=== PATIENT | female | born 1995 | race Caucasian/White ===

== ENCOUNTER → 2018-03-13 | Outpatient (CLI) | payer OTHER ==
[~2018-03-13] MED LIST: GADAVIST IV PRN
--- NOTE | 2018-03-13 11:30 | DIAGNOSTIC IMAGING REPORT ---
PELVIS MRI WITH AND WITHOUT INTRAVENOUS CONTRAST HISTORY: PELVIC PAIN,ABNORMAL PELVIC ULTRASOUND TECHNIQUE: Multiplanar multisequence MRI of the pelvis was performed both before and after the intravenous administration of contrast. COMPARISON STUDY: None. FINDINGS: The uterus measures 6.7 x 4.8 x 3.2 cm. The endometrium is normal in thickness measuring 4 mm. No uterine masses identified. The cervix is unremarkable. No significant pelvic free fluid. The left ovary is normal in size measuring 2.7 x 1.6 cm. This contains a few small follicles/cysts. Dominant cyst measures 15 mm. The right ovary measures 7.4 x 6.1 cm. This is a result of a large cyst measuring 6.9 x 6.1 cm. There are few additional tiny subcentimeter follicles/cysts within the right ovary. This large cyst is seen anterior to the uterus and abuts and displaces the bladder dome. No bladder wall thickening. No pelvic lymphadenopathy. Postcontrast sequences show no areas of abnormal enhancement. Specifically, there is no abnormal enhancement within the dominant right ovarian cyst. IMPRESSION: 1. A large right ovarian simple cyst measuring 6.9 x 6.1 cm. This is anterior to the uterus and abuts and displaces the bladder dome. No abnormal enhancement. 6-8 week pelvic ultrasound follow-up is recommended to ensure resolution. Of note, the large size of the cyst does increase the possibility of an ovarian torsion. Therefore, clinical follow-up is recommended. 2. Normal uterus and left ovary. Electronically signed by: Rito Beebe M.D. 03/13/2018 11:29 AM Dictated Date/Time: 03/13/2018 11:19 AM
== END | disposition home or self-care (01) ==
LOC: C.MRI 09:36
PROVIDERS: ATTEND Nurse Practitioner Obstetrics & Gynecology
DX: N94.10 Unspecified dyspareunia (principal); R10.2 Pelvic and perineal pain; R93.8 Abnormal findings on diagnostic imaging of other specified body structures; N83.291 Other ovarian cyst, right side